=== PATIENT | female | born 2000 | race American Indian/Alaskan Native ===

== ENCOUNTER 2020-09-14 15:48 | Emergency (ER) | payer SELFPAY ==
[2020-09-14 16:52] VITALS: BP 125/89
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
== END 2020-09-14 18:00 | disposition home or self-care (01) ==
LOC: ED 15:48
DX: S16.1XXA Strain of muscle, fascia and tendon at neck level, initial encounter (principal); Z79.899 Other long term (current) drug therapy; V49.59XA Passenger injured in collision with other motor vehicles in traffic accident, initial encounter; Y92.410 Unspecified street and highway as the place of occurrence of the external cause; Y93.89 Activity, other specified; Y99.8 Other external cause status
CPT/HCPCS: 99282

== ENCOUNTER 2020-12-28 07:17 | Emergency (ER) | payer SELFPAY ==
[2020-12-28 07:25] VITALS: BP 142/97
--- NOTE | 2020-12-28 07:36 | Emergency Department Report ---
ED Female HPI - General Chief complaint: Vaginal Bleeding Stated complaint: VAGINAL BLEEDING/X3 WEEKS Time Seen by Provider: 12/28/20 07:28 Source: patient Mode of arrival: Ambulatory Limitations: No Limitations - History of Present Illness Initial comments: 20-year-old -British female presents to the emergency room complaining of heavy vaginal bleeding since December 06, 2020. Patient reports that her normal cycle last for about 4 to 5 days. Patient states that she has been having history of irregular periods and her last normal period was in July. Patient denies any pelvic pain no vaginal discharge abdominal pain no nausea no vomiting. She is 0. She states that she is going through greater than 5 pads yesterday and so far this morning she is gone through 2 pads. She denies any chest pain or shortness of breath. She states that she sometimes gets dizzy but not at this moment. Patient has no known drug allergies does not have a primary care provider and currently does not take any medications on a daily basis. MD Complaint: vaginal bleeding Severity scale (0 -10): 0 Are you Now?: No Associated Symptoms: denies other symptoms - Related Data Sexually active: Yes : 0 Previous Rx's Medication Instructions Recorded Last Taken Type Lidocaine [Lidoderm] 1 each TP PRN PRN #20 adh..patch 09/14/20 Unknown Rx Naproxen 500 mg PO BID #20 tablet 09/14/20 Unknown Rx Allergies Allergy/AdvReac Type Severity Reaction Status Date / Time No Known Allergies Allergy Unverified 09/14/20 16:49 ED Review of Systems ROS: Stated complaint: VAGINAL BLEEDING/X3 WEEKS Other details as noted in HPI Comment: All other systems reviewed and negative ED Past Medical Hx - Past Medical History Previous Medical History?: No - Surgical History Past Surgical History?: No - Social History Smoking Status: Current Every Day Smoker Substance Use Type: Alcohol - Medications Home Medications: Home Medications Medication Instructions Recorded Confirmed Last Taken Type Lidocaine [Lidoderm] 1 each TP PRN PRN #20 adh..patch 09/14/20 Unknown Rx Naproxen 500 mg PO BID #20 tablet 09/14/20 Unknown Rx ED Physical Exam - General Limitations: No Limitations General appearance: alert, in no apparent distress - Head Head exam: Present: atraumatic, normocephalic - Eye Eye exam: Present: normal appearance, other (Conjunctiva is pink) - ENT ENT exam: Present: mucous membranes moist, normal external ear exam, other (Gums are pink) - Neck Neck exam: Present: normal inspection, full ROM - Respiratory Respiratory exam: Present: normal lung sounds bilaterally. Absent: respiratory distress, chest wall tenderness, accessory muscle use - Cardiovascular Cardiovascular Exam: Present: regular rate - GI/Abdominal GI/Abdominal exam: Present: soft, normal bowel sounds. Absent: distended, tenderness - Extremities Exam Extremities exam: Present: normal inspection, full ROM - Back Exam Back exam: Present: normal inspection - Neurological Exam Neurological exam: Present: alert, oriented X3, normal gait - Psychiatric Psychiatric exam: Present: normal affect, normal mood - Skin Skin exam: Present: warm, dry, intact, normal color. Absent: rash ED Course Vital Signs 12/28/20 07:20 Temperature 98.3 F Pulse Rate 93 H Respiratory 18 Rate Blood Pressure 142/97 O2 Sat by Pulse 97 Oximetry ED Medical Decision Making - Lab Data Result diagrams: 12/28/20 07:29 - Medical Decision Making 20-year-old -British female presents to the emergency room complaining of heavy vaginal bleeding since December 06, 2020. Patient reports that her normal cycle last for about 4 to 5 days. Patient states that she has been having history of irregular periods and her last normal period was in July. Patient denies any pelvic pain no vaginal discharge abdominal pain no nausea no vomiting. She is 0. She states that she is going through greater than 5 pads yesterday and so far this morning she is gone through 2 pads. She denies any chest pain or shortness of breath. She states that she sometimes gets dizzy but not at this moment. Patient has no known drug allergies does not have a primary care provider and currently does not take any medications on a daily basis. CBC, type and screen hCG quantitative has been ordered CBC shows no anemia negative test. Will discharge patient refer her to [facility] for management of menorrhagia. Critical care attestation.: If time is entered above; I have spent that time in minutes in the direct care of this critically ill patient, excluding procedure time. ED Disposition Clinical Impression: Heavy menstrual period Qualifiers: Menorrhagia type: with irregular cycle Qualified Code(s): N92.1 - Excessive and frequent menstruation with irregular cycle Disposition: DC-01 TO HOME OR SELFCARE Is pt being admited?: No Does the pt Need Aspirin: No Condition: Stable Instructions: Abnormal Uterine Bleeding, [id number] Additional Instructions: Labs show that you are not anemic. I recommend to follow-up with the [facility] I have listed 1 below for your convenience. Referrals: [facility] [Provider Group] - 3-5 Days Forms: Work/School Release Form(ED) Time of Disposition: 08:43
[2020-12-28 07:51] LABS: Basophils % (Auto) 0.5 % (0.0-1.8); Eosinophils # (Auto) 0.1 K/mm3 (0.0-0.4); Eosinophils % (Auto) 1.4 % (0.0-4.3); Hematocrit 43.6 % (30.3-42.9); Hemoglobin 14.8 gm/dl (10.1-14.3); Lymphocytes # (Auto) 3.9 K/mm3 (1.2-5.4); Lymphocytes % (Auto) 42.7 % (13.4-35.0); Mean Corpuscular HGB Conc 34 % (30-34); Mean Corpuscular Volume 87 fl (79-97); Monocytes # (Auto) 0.8 K/mm3 (0.0-0.8); Platelet Count 353 K/mm3 (140-440); Red Blood Count 5.03 M/mm3 (3.65-5.03); Red Cell Distribution Width 13.5 % (13.2-15.2)
== END 2020-12-28 09:27 | disposition home or self-care (01) ==
LOC: ED 07:17
DX: N92.1 Excessive and frequent menstruation with irregular cycle (principal); F17.200 Nicotine dependence, unspecified, uncomplicated; Z72.89 Other problems related to lifestyle; Z79.899 Other long term (current) drug therapy
CPT/HCPCS: 36415; 84702; 85025; 86900; 86901; 99283

== ENCOUNTER 2021-05-05 21:11 | Emergency (ER) | payer SELFPAY ==
--- NOTE | 2021-05-05 23:36 | Emergency Department Report ---
ED General Adult HPI - General Chief complaint: Headache Stated complaint: HEADACHE Time Seen by Provider: 05/05/21 23:19 Source: patient Mode of arrival: Ambulatory Limitations: No Limitations - History of Present Illness Initial comments: Patient 21-year-old female who presents for right temporal headache. Rated at 5/10 aching. Patient has history of same same location and intensity. Is also associated history of vertigo. Been no fevers no chills no runny nose no sore throat no ear pain. Patient states mild photophobia patient does have a PCP and follows ophthalmology annually for chronic vertigo. - Related Data Previous Rx's Medication Instructions Recorded Last Taken Type Lidocaine [Lidoderm] 1 each TP PRN PRN #20 adh..patch 09/14/20 Unknown Rx Naproxen 500 mg PO BID #20 tablet 09/14/20 Unknown Rx Acetaminophen [Acetaminophen TAB] 1,000 mg PO Q6HR PRN #30 tablet 05/06/21 Unknown Rx Metoclopramide [Reglan] 10 mg PO Q8H PRN #30 tab 05/06/21 Unknown Rx diphenhydrAMINE [Benadryl CAP] 25 mg PO Q8HR PRN #30 capsule 05/06/21 Unknown Rx Allergies Allergy/AdvReac Type Severity Reaction Status Date / Time No Known Allergies Allergy Unverified 09/14/20 16:49 ED Review of Systems ROS: Stated complaint: HEADACHE Other details as noted in HPI Constitutional: denies: chills, fever Eyes: denies: eye pain, eye discharge, vision change ENT: denies: ear pain, throat pain Respiratory: denies: cough, shortness of breath, wheezing Cardiovascular: denies: chest pain, palpitations Endocrine: no symptoms reported Gastrointestinal: denies: abdominal pain, nausea, vomiting, diarrhea Genitourinary: denies: urgency, dysuria, discharge Musculoskeletal: denies: back pain, joint swelling, arthralgia Skin: denies: rash, lesions Neurological: headache. denies: numbness, paresthesias, confusion, abnormal gait, vertigo Psychiatric: denies: anxiety, depression Hematological/Lymphatic: denies: easy bleeding, easy bruising ED Past Medical Hx - Past Medical History Previous Medical History?: No - Surgical History Past Surgical History?: No - Social History Smoking Status: Current Every Day Smoker Substance Use Type: Alcohol - Medications Home Medications: Home Medications Medication Instructions Recorded Confirmed Last Taken Type Lidocaine [Lidoderm] 1 each TP PRN PRN #20 adh..patch 09/14/20 Unknown Rx Naproxen 500 mg PO BID #20 tablet 09/14/20 Unknown Rx Acetaminophen [Acetaminophen TAB] 1,000 mg PO Q6HR PRN #30 tablet 05/06/21 Unknown Rx Metoclopramide [Reglan] 10 mg PO Q8H PRN #30 tab 05/06/21 Unknown Rx diphenhydrAMINE [Benadryl CAP] 25 mg PO Q8HR PRN #30 capsule 05/06/21 Unknown Rx ED Physical Exam - General Limitations: No Limitations General appearance: alert, in no apparent distress - Head Head exam: Present: normocephalic, normal inspection - Eye Eye exam: Present: normal appearance, PERRL, EOMI, nystagmus. Absent: conjunctival injection Pupils: Present: normal accommodation - Expanded Eye Exam Expanded Pupils: Regular, Round: Bilateral Sclera/Conjunctival: Normal Inspection: Bilateral Anterior chamber: Normal Inspection: Bilateral Posterior chamber: Deferred: Bilateral Visual acuity (R) = 20/: 20 Visual acuity (L) = 20/: 20 With correction: No - ENT ENT exam: Present: mucous membranes moist - Neck Neck exam: Present: normal inspection, full ROM. Absent: tenderness, meningismus, lymphadenopathy - Respiratory Respiratory exam: Present: normal lung sounds bilaterally. Absent: respiratory distress, wheezes, stridor - Cardiovascular Cardiovascular Exam: Present: regular rate, normal rhythm, normal heart sounds. Absent: systolic murmur, diastolic murmur, rubs, gallop - GI/Abdominal GI/Abdominal exam: Present: soft, normal bowel sounds. Absent: distended - Rectal Rectal exam: Present: deferred - Extremities Exam Extremities exam: Present: normal inspection, full ROM, normal capillary refill - Back Exam Back exam: Present: normal inspection, full ROM. Absent: vertebral tenderness - Neurological Exam Neurological exam: Present: alert, oriented X3, CN II-XII intact, normal gait, reflexes normal. Absent: motor sensory deficit - Expanded Neurological Exam Expanded Patient oriented to: Present: person, place, time Speech: Present: fluid speech Cranial nerves: EOM's Intact: Normal Motor strength exam: RUE: 5, LUE: 5, RLE: 5, LLE: 5 Best Eye Response ([place]): (4) open spontaneously Best Motor Response ([place]): (6) obeys commands Best Verbal Response ([place]): (5) oriented [place] Total: 15 - Psychiatric Psychiatric exam: Present: normal affect, normal mood - Skin Skin exam: Present: warm, dry, intact, normal color. Absent: rash ED Course Vital Signs 05/05/21 05/05/21 21:15 23:45 Temperature 98.2 F Pulse Rate 95 H Respiratory 14 18 Rate Blood Pressure 152/93 O2 Sat by Pulse 99 Oximetry ED Medical Decision Making - Medical Decision Making Headache is improved. Patient is alert oriented x3 amatory with steady gait to baseline per patient. Plan DC to home with prescriptions, follow-up with your doctor in 2 to 3 days. Return to emergency department should symptoms worsen Critical care attestation.: If time is entered above; I have spent that time in minutes in the direct care of this critically ill patient, excluding procedure time. ED Disposition Clinical Impression: Headache Qualifiers: Headache type: unspecified Headache chronicity pattern: acute headache Int ractability: not intractable Qualified Code(s): R51.9 - Headache, unspecified Disposition: 01 HOME / SELF CARE / HOMELESS Is pt being admited?: No Does the pt Need Aspirin: No Condition: Stable Instructions: Migraine Headache, [id number] Additional Instructions: Take medications as prescribed, follow-up with your doctor in 2 to 3 days. Return to emergency room if symptoms worsen. Prescriptions: Acetaminophen [Acetaminophen TAB] 1,000 mg PO Q6HR PRN #30 tablet PRN Reason: pain headache diphenhydrAMINE [Benadryl CAP] 25 mg PO Q8HR PRN #30 capsule PRN Reason: Headache Metoclopramide [Reglan] 10 mg PO Q8H PRN #30 tab PRN Reason: headache Referrals: DULCE MARIA KOROMA MD [Referring] - 3-5 Days Forms: Work/School Release Form(ED) Time of Disposition: 00:14
[2021-05-05] MEDS: ACETAMINOPHEN 500 MG TAB PO ONE (23:45)
[2021-05-05] MEDS: diphenhydrAMINE 25 MG CAP PO ONE (23:45)
[2021-05-05] MEDS: predniSONE 20 MG TAB PO ONE (23:45)
[2021-05-05] MEDS: METOCLOPRAMIDE 10 MG TAB PO ONE (23:46)
[2021-05-06 00:36] VITALS: BP 116/81
== END 2021-05-06 00:32 | disposition home or self-care (01) ==
LOC: ED 21:11
DX: R51.9 Headache, unspecified (principal); F17.200 Nicotine dependence, unspecified, uncomplicated
CPT/HCPCS: 99282; J7512